=== PATIENT | female | born 1955 | race Caucasian/White ===

== ENCOUNTER 2023-11-27 12:49 | Outpatient (AMB) | payer MEDICARE, MEDICAID, SELFPAY ==
--- NOTE | 2023-11-27 12:54 | A.SPINEOV_ITS ---
Intake Visit Reasons: lumbar radiculopathy Intake Note: Ms. Olsen is here today c/o low back pain. 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 She comes in today with a chief complaint of low back pain. She states she is interested in having her lumbar spine discs replaced. She reports she has had low back pain with the best 25 years. She reports inciting incident of falling down a flight of stairs 25 years ago in which she broke several bones in her back per her report. She states she has had back pain ever since then. After recent MRI was completed she was informed that she has degenerative disc disease. Therefore, she sought out our practice as a possible solution for her back pain. She states that prolonged activity exacerbates her pain; things such as doing the dishes, mopping, sweeping, making the bed. She also reports that standing for prolonged periods of time exacerbates her pain. She reports that she does not take any medications for the pain as she does not want the medications to interfere with the Adderall that she takes for her chronic narcolepsy. She has been to physical therapy in the past however has not gone in a few years. She has attempted critical care nurse specialist. She has attempted injections in the past, but was not satisfied with the outcome. PMH: Chronic narcolepsy, type 2 diabetes (unsure of last A1c), depression, unspecified cardiac issues (patient unable to elaborate), GERD, essential tremor Social hx: The patient does not smoke, reports no substance use. Medications: Allergies: Metformin, simvastatin, glimepiride, he bupropion, fluoxetine, aripiprazole, Adderall, ferrous sulfate, pantoprazole, carvedilol, Entresto, farxiga, vitamin D3, Ozempic, Anoro Ellipta, albuterol. Physical exam: The patient has 5/5 strength in her upper and lower extremities. She is able to ambulate well and rises from a seated position without difficulty. She denies any significant sensational deficits. Her reflexes are 2+ intact. (-) bilateral straight leg raise, (-) Paredes's, (-) Babinski's. Imaging review: MRI of the lumbar spine completed at [facility] shows no significant central canal or foraminal stenosis diffusely throughout the lumbar spine. There are several levels that show varying degrees of facet arthropathy. Impression: Malinda is a pleasant 68-year-old female who comes in today for a chief complaint of chronic longstanding back pain after a series of reported fractures in her spine after a fall down a set of stairs roughly 25 years ago. Her MRI imaging does not reveal any obvious neurosurgical intervention that could help solve her problem. She may be suffering from some form of complex regional pain syndrome, or other residual pain from her inciting incident. Additionally, facet blocks would be a potential option for treatment given the arthropathy seen on MRI. I would like to refer her to our colleagues at [facility], to evaluate her for the possibility of facet blocks and/or nerve ablation/spinal cord stimulator placement. Thank you for allowing us to care for your patient. The total time spent with this visit with this patient was 45 minutes reviewing history, physical exam, MRI imaging review, and implementation of treatment plan or further diagnostic testing Darwin Collins MD,PhD [facility] Coding Level of Care Code New Pt Level 4 (93029) Diagnoses Lumbago M54.50
== END 2023-11-27 14:41 | disposition home or self-care (01) ==
PROVIDERS: PCP Family Medicine; Referring Provider Family Medicine; Visit Provider Physician Assistant
DX: M54.50 Low back pain, unspecified (principal)
CPT/HCPCS: 99204

== ENCOUNTER → 2023-11-27 12:49 | Outpatient (BNVA) | payer MEDICARE, MEDICAID, SELFPAY | PROVIDERS: PCP Family Medicine; Visit Provider Physician Assistant | DX: M54.50 Low back pain, unspecified (principal) | CPT/HCPCS: 99202 ==